=== PATIENT | female | born 1990 | race African-American/Black ===

== ENCOUNTER 2020-01-03 07:57 | Emergency (ER) | payer MEDICAID, SELFPAY ==
--- NOTE | 2020-01-03 08:04 | ED.GENADUL_ITS ---
Discharge Plan Discharge Details Primary Care Provider: None,None ED Provider: Lauren Lobo Mode of arrival: ambulatory . Date/Time Provider Initiated Documentation: 01/03/20 08:02 . Limitations to Documentation: no limitations . Information obtained by: patient .
--- NOTE | 2020-01-03 08:04 | W.ED.GENAD ---
Discharge Plan Discharge Details Primary Care Provider: None,None ED Provider: Lauren Lobo Mode of arrival: ambulatory. Date/Time Provider Initiated Documentation: 01/03/20 08:02. Limitations to Documentation: no limitations. Information obtained by: patient.
[2020-01-03 08:05] VITALS: BP 147/83; PULSE 82; TEMP 37.2; O2SAT 97
--- NOTE | 2020-01-03 08:15 | DI.US_ITS ---
EXAM: US PELVIS TRANSVAGINAL CLINICAL HISTORY: LLQ pain, h/o hemorrhagic cysts TECHNIQUE: Transabdominal and transvaginal imaging was performed using standard protocol. COMPARISON: No exams were available for comparison FINDINGS: KIDNEYS: Kidneys are symmetric in size. No evidence of renal calculi. No evidence of hydronephrosis. No renal mass or cyst identified. UTERUS: Anteverted. 10.9 x 5.7 x 6.2 cm Endometrium: 11 millimeters Myometrium: Unremarkable. Lower anterior uterine segment scar. Cervix: Unremarkable. OVARIES: Right: Cyst or mass: None. Left: Cyst or mass: 1.6 cm dominant follicle DOPPLER: Color: Symmetric and uniform flow to both ovaries. No hyperemia. Duplex: Normal ovarian arterial waveforms visualized. CUL-DE-SAC: Free fluid: None. IMPRESSION: 1. Unremarkable uterus with endometrial stripe within normal limits. 2. Unremarkable bilateral ovaries. DATA REPOSITORY:
[2020-01-03 08:18] LABS: Bilirubin Negative (Negative); Blood Moderate (Negative); Clarity Clear (Clear); Glucose 100 mg/dL (Negative); Ketones Negative (Negative); Leukocyte Esterase Small (Negative); Nitrite Negative (Negative); Specific Gravity >= 1.030 (1.005-1.025); Urobilinogen 0.2 EU/dL (Up TO 0.2); pH 5.5 (5-8)
--- NOTE | 2020-01-03 08:30 | DI.RAD_ITS ---
EXAM: XR FOOT RT COMPLETE CLINICAL HISTORY: ? FB plantar surface. TECHNIQUE: 2D digital imaging was performed. COMPARISON: No exams were available for comparison FINDINGS: BONES: No acute fracture is present. No bony destructive lesion is seen. JOINTS: No dislocation present. SOFT TISSUE: No radiopaque foreign body or abnormal gas collection. IMPRESSION: Unremarkable radiographs of the right foot. DATA REPOSITORY: RADIATION DOSE DELIVERED:
[2020-01-03 08:33] LABS: Bacteria Few HPF (Negative); C & S Indicated? No/Sq. Contamination; Casts Negative LPF (Negative); Crystals Negative HPF (Negative); Epithelial Cells Many HPF (Negative); Mucus Negative (Negative)
--- NOTE | 2020-01-03 08:36 | W.ED.GENAD ---
Discharge Plan Disposition Patient Disposition: HOME Condition: Stable Discharge Details Clinical Impression: Pelvic pain, infection, trichomonal, Elevated liver enzymes, Anemia Primary Care Provider: None,None ED Provider: Lauren Lobo Home Meds and New Rx's Prescriptions: New ibuprofen 600 mg tablet 600 mg PO Q8H PRNQty: 20 RF: 0 ferrous sulfate [iron] 325 mg (65 mg iron) tablet 325 mg PO DAILY Qty: 30 RF: 0 Discontinued ibuprofen 800 mg Tablet 800 mg PO Q8H RF: 0 No Action norethindrone (contraceptive) 0.35 mg tablet 0.35 mg PO DAILY Qty: 56 RF: 2 Discharge Instructions Instructions: Trichomoniasis (ED), Anemia (ED), Pelvic Pain (ED) Additional Instructions: Please return immediately to the emergency department if you develop any new or worsening symptoms, if your condition does not improve as expected, or if you become otherwise concerned. It is extremely important that you call soon as possible to make an appointment to be seen in follow-up for this visit by your primary care doctor, collating machine operator, and mental health as we discussed. Also, the number for a stitch bonding machine tender is provided here. Please call in the next 2 to 3 days if you are continuing to have foot pain. Stand Alone Forms: Work Release Referrals: Grayson Alcaraz DPM [[facility] STAFF PHYSICIAN] - Discharge Data Discharge Date/Time-TO BE ENTERED AT DEPARTURE: 01/03/20 13:50 Medical Decision Making Hung Barraza is a 29-year-old woman with history of hidradenitis presenting to the emergency department with irregular vaginal bleeding last night after her typical period ended 12/26, no current vaginal bleeding, also with left pelvic pain since onset of irregular bleeding last night. Patient also notes possible retained foreign body laceration right plantar foot. On exam patient is well and nontoxic-appearing, to bathroom and up and out of bed change with ease and without apparent discomfort. There is tenderness palpation across the pelvis, worse on the left, no mass, no rebound or guarding, no other abdominal tenderness palpation. Wound right plantar foot healing well without signs of infection, no obvious foreign body. Concern for possible retained foreign body to foot without active infection/abscess, left ovarian cyst versus other. Doubt torsion. U negative. Exam/history at this time is not consistent with appendicitis, diverticulitis, major intra-abdominal hemorrhage, sepsis, PID. Plan for screening labs, UA, pelvic ultrasound, foot x-ray. Will monitor and reassess. US negative for acute pathology process. Patient reporting no pelvic pain at this time. Exam/history at this time is not consistent with intermittent ovarian torsion. Patient reports history of bipolar, anxiety, and PTSD. With no current PCP, TOLL TEST DESK WORKER, or mental health practitioner, plan for care management to see patient to facilitate outpatient follow-up. Labs show slightly elevated liver enzymes, anemia 10.4. UA shows trichomonas. Patient reports that she has not been sexually active since 08/03, and has had no vaginal discharge, no itching. Patient has appointment with TOLL TEST DESK WORKER 01/05/2020. Exam/history at this time is not consistent with PID, will treat for trichomonas with one-time dose 2 g metronidazole, patient to follow-up with TOLL TEST DESK WORKER as scheduled, push to have pelvic exam for further STI testing performed at that visit. Patient also has appointment scheduled with PCP. Plan for outpatient follow-up for foot wound if she has continued pain in the next few days. Referral placed for outpatient follow-up with mental health, care management also involved with planning. Patient evaluated by mental [facility] for establishment of outpatient care in emergency department. Patient reports that she feels well and ready to go. Plan for Rx iron supplementation. Patient requests Rx for ibuprofen. I had a lengthy discussion with Patient regarding return to emergency department precautions, home care, and importance of outpatient follow-up. Pt verbalizes understanding of the plan and is amenable. Patient discharged to home with clear plan for outpatient follow-up. All questions were answered. Disposition decision was made weighing the risks and benefits of hospitalization versus outpatient treatment, the risk for further decompensation, and the patient's wishes. Medical Records Medical records reviewed: Yes I reviewed the patient's medical records. Imaging Data Radiologic Study: Attestation: I personally reviewed and interpreted this imaging study as follows: Radiologist's impression: EXAM: XR FOOT RT COMPLETE CLINICAL HISTORY: ? FB plantar surface. TECHNIQUE: 2D digital imaging was performed. COMPARISON: No exams were available for comparison FINDINGS: BONES: No acute fracture is present. No bony destructive lesion is seen. JOINTS: No dislocation present. SOFT TISSUE: No radiopaque foreign body or abnormal gas collection. IMPRESSION: Unremarkable radiographs of the right foot. EXAM: US PELVIS TRANSVAGINAL CLINICAL HISTORY: LLQ pain, h/o hemorrhagic cysts TECHNIQUE: Transabdominal and transvaginal imaging was performed using standard protocol. COMPARISON: No exams were available for comparison FINDINGS: KIDNEYS: Kidneys are symmetric in size. No evidence of renal calculi. No evidence of hydronephrosis. No renal mass or cyst identified. UTERUS: Anteverted. 10.9 x 5.7 x 6.2 cm Endometrium: 11 millimeters Myometrium: Unremarkable. Lower anterior uterine segment scar. Cervix: Unremarkable. OVARIES: Right: Cyst or mass: None. Left: Cyst or mass: 1.6 cm dominant follicle DOPPLER: Color: Symmetric and uniform flow to both ovaries. No hyperemia. Duplex: Normal ovarian arterial waveforms visualized. CUL-DE-SAC: Free fluid: None. IMPRESSION: 1. Unremarkable uterus with endometrial stripe within normal limits. 2. Unremarkable bilateral ovaries. Lab Data Lab results reviewed: Yes I reviewed the patient's lab results. Labs: Laboratory Tests Range/Units 01/03/20 01/03/20 01/03/20 08:05 08:50 08:50 WBC (4.4-10.8) 10^3/uL 5.25 RBC (3.93-5.22) 10^6/uL 4.67 Hgb (11.2-15.7) g/dL 10.4 L Hct (36.0-46.0) % 35.4 L MCV (80-95) fL 75.8 L MCH (27.0-33.0) pg 22.3 L MCHC (32.0-36.0) % 29.4 L RDW (11.7-14.6) % 17.6 H Plt Count (130-400) 10^3/uL 559 H MPV (8.0-11.0) fL 9.2 Immature Gran % 0.2 Neutrophils % 49.1 Lymphocytes % 41.3 Monocytes % 7.6 Eosinophils % 1.0 Basophils % 0.8 Nucleated RBC % % 0 Absolute Neutrophils (1.2-6.7) 10^3/uL 2.58 Absolute Lymphocytes (1.2-3.4) 10^3/uL 2.17 Absolute Monocytes (0.1-0.8) 10^3/uL 0.40 Absolute Eosinophils (0.0-0.7) 10^3/uL 0.05 Absolute Basophils (0.0-0.2) 10^3/uL 0.04 PT (9.3-11.0) sec INR (0.9-1.1) Sodium (136-145) mmol/L 137 Potassium (3.5-5.1) mmol/L 4.1 Chloride (98-107) mmol/L 102 Carbon Dioxide (21.0-32.0) mmol/L 25.2 Anion Gap (3-11) mmol/L 9.8 BUN (7-18) mg/dL 9 Creatinine (0.55-1.02) mg/dL 0.55 Estimated GFR/1.73 m2 (mL/min/1.73m2) >= 60.00 Glucose (74-106) mg/dL 180 H Calcium (8.5-10.1) mg/dL 9.2 Total Bilirubin (0.2-1.0) mg/dL 0.2 AST (15-37) U/L 46 H ALT (14-59) U/L 85 H Alkaline Phosphatase (46-116) U/L 104 Total Protein (6.4-8.2) g/dL 8.3 H Albumin (3.4-5.0) g/dL 3.7 Beta HCG, Quant (1-3) mIU/mL 2 Urine Color (Yellow) Yellow Urine Clarity (Clear) Clear Urine pH (5-8) 5.5 Ur Specific [place] (1.005-1.025) >= 1.030 H Urine Protein (Negative) mg/dL 30 H Urine Ketones (Negative) mg/dL Negative Urine Blood (Negative) Moderate H Urine Nitrite (Negative) Negative Urine Bilirubin (Negative) Negative Urine Urobilinogen (Up TO 0.2) EU/dL 0.2 Ur Leukocyte Esterase (Negative) Small H Urine RBC (0-2) HPF 10-20 H Urine WBC (0-5) HPF 5-10 Ur Epithelial Cells (Negative) HPF Many Urine Crystals (Negative) HPF Negative Urine Bacteria (Negative) HPF Few Urine Casts (Negative) LPF Negative Urine Mucus (Negative) Negative Urine Other (Negative) Many trichomonas Ur Culture Indicated? No/sq. contamination Urine Glucose (Negative) mg/dL 100 Range/Units 01/03/20 08:50 WBC (4.4-10.8) 10^3/uL RBC (3.93-5.22) 10^6/uL Hgb (11.2-15.7) g/dL Hct (36.0-46.0) % MCV (80-95) fL MCH (27.0-33.0) pg MCHC (32.0-36.0) % RDW (11.7-14.6) % Plt Count (130-400) 10^3/uL MPV (8.0-11.0) fL Immature Gran % Neutrophils % Lymphocytes % Monocytes % Eosinophils % Basophils % Nucleated RBC % % Absolute Neutrophils (1.2-6.7) 10^3/uL Absolute Lymphocytes (1.2-3.4) 10^3/uL Absolute Monocytes (0.1-0.8) 10^3/uL Absolute Eosinophils (0.0-0.7) 10^3/uL Absolute Basophils (0.0-0.2) 10^3/uL PT (9.3-11.0) sec 9.8 INR (0.9-1.1) 1.0 Sodium (136-145) mmol/L Potassium (3.5-5.1) mmol/L Chloride (98-107) mmol/L Carbon Dioxide (21.0-32.0) mmol/L Anion Gap (3-11) mmol/L BUN (7-18) mg/dL Creatinine (0.55-1.02) mg/dL Estimated GFR/1.73 m2 (mL/min/1.73m2) Glucose (74-106) mg/dL Calcium (8.5-10.1) mg/dL Total Bilirubin (0.2-1.0) mg/dL AST (15-37) U/L ALT (14-59) U/L Alkaline Phosphatase (46-116) U/L Total Protein (6.4-8.2) g/dL Albumin (3.4-5.0) g/dL Beta HCG, Quant (1-3) mIU/mL Urine Color (Yellow) Urine Clarity (Clear) Urine pH (5-8) Ur Specific [place] (1.005-1.025) Urine Protein (Negative) mg/dL Urine Ketones (Negative) mg/dL Urine Blood (Negative) Urine Nitrite (Negative) Urine Bilirubin (Negative) Urine Urobilinogen (Up TO 0.2) EU/dL Ur Leukocyte Esterase (Negative) Urine RBC (0-2) HPF Urine WBC (0-5) HPF Ur Epithelial Cells (Negative) HPF Urine Crystals (Negative) HPF Urine Bacteria (Negative) HPF Urine Casts (Negative) LPF Urine Mucus (Negative) Urine Other (Negative) Ur Culture Indicated? Urine Glucose (Negative) mg/dL HPI General Mode of arrival: ambulatory. Date/Time Provider Initiated Documentation: 01/03/20 08:02. Limitations to Documentation: no limitations. Information obtained by: patient. HPI Narrative: Hung Barraza is a 29-year-old woman with history of hidradenitis, the menstrual bleeding presenting to the emergency department with irregular vaginal bleeding and left lower quadrant pain. Patient reports that she has a long history of heavy periods and pelvic pain. Patient reports that endometriosis runs in her family, both her mother and sister have been diagnosed with this. Patient reports that she has an appointment with a collating machine operator 01/12 for further evaluation of possible endometriosis. Patient reports that her last period was typical for her and ended 12/26. Patient reports that last night she had sudden onset pain in her pelvic area, worse on the left, felt a heaviness in her pelvis and went to the bathroom. Patient reports that she had a significant amount of vaginal bleeding and clots, which then seemed to stop completely. Patient has had no further vaginal bleeding since this episode last night. She reports continued pain in her left lower quadrant that radiates into her left leg. Patient reports that she has had this type of pain for years, same in location/quality/severity, approximately half of the days in a month, but severity of the pain has been worse than usual since last night, though improved this morning. Patient has attributed this pain to possible endometriosis in the past. Patient reports that she was diagnosed with a ruptured ovarian cyst in the past, which felt somewhat similar to this episode. Patient has 2 children, also with 1 miscarriage last year. Was previously in her usual state of health. No other recent symptoms. She denies any other pain. Patient notes that 3 days ago she stepped on what she believes was glass, and is concerned that she may have some of the retained material in the cut on her right foot. Patient reports that she cleaned the cut well. She reports mild pain at the site, denies discharge/redness/swelling. Patient reports her tetanus is up-to-date. Patient states that she moved to [place] from out of state in May, and then moved to [place] in October. Related Data Home Medications Medication Instructions Recorded Confirmed ferrous sulfate [iron] 325 mg PO DAILY #30 tab 01/03/20 01/05/20 ibuprofen 600 mg PO Q8H PRN #20 tab 01/03/20 01/05/20 norethindrone (contraceptive) 0.35 0.35 mg PO DAILY #56 tab 01/05/20 01/05/20 mg tablet Previous Rx's Medication Instructions Recorded ferrous sulfate [iron] 325 mg PO DAILY #30 tab 01/03/20 ibuprofen 600 mg PO Q8H PRN #20 tab 01/03/20 norethindrone (contraceptive) 0.35 0.35 mg PO DAILY #56 tab 01/05/20 mg tablet Allergies Allergy/AdvReac Type Severity Reaction Status Date / Time grape Allergy Unverified 01/05/20 13:06 General Stated Complaint: TOLL TEST DESK WORKER ILDA: 3 Review of Systems Narrative: Constitutional: denies fevers Eyes: denies eye pain ENT: denies ear pain, dental pain, sore throat Cardiovascular: denies chest pain, edema Respiratory: denies SOB, cough GI: denies vomiting, diarrhea, reports left lower quadrant/left pelvic pain : denies flank pain, dysuria, vaginal discharge, reports irregular vaginal bleeding MSK: denies back pain, neck pain, arthralgias, myalgias Skin: denies rash, reports cut with possible foreign body to plantar surface of right foot as per HPI Neuro: denies headaches, numbness, weakness PFSH Medical History (Updated 01/09/20 @ 18:49 by Robyn Patten MD) Anxiety In past has used Klonipin, and Xanax. Bipolar 1 disorder Elevated blood pressure reading 01/04/20. 140/93. Endometriosis Pt never had laparoscopy. Was told her pelvic pain sx were most likely endometriosis. Obesity 01/04/20 BMI 45. Pelvic pain Surgical History (Updated 01/09/20 @ 18:21 by Robyn Patten MD) H/O breast augmentation Hx of section Hx of dilation and curettage 2018. SAB twins Hx of tonsillectomy Family History (Updated 01/09/20 @ 18:10 by Robyn Patten MD) Other Blood clotting disorder Breast cancer Diabetes Heart disease Hyperlipidemia Stroke Social History (Updated 01/09/20 @ 18:18 by Robyn Patten MD) Smoking/Tobacco Use Status: Never Alcohol Intake: never Drug use: Daily Substance use type: marijuana Household members: other Details: Marilu-Joan Grady Housing: other Details: moved from [facility]. Lives with friend who is travelling nurse in [place] Number of Children: 2 Education Level: high school current occupation: [employer]. Part-time Do you think of yourself as: straight/heterosexual Do you feel safe at home: Yes Do you feel safe in your relationship?: Yes History History 3 Para 2 Hx # Term Pregnancies 2 Multiple births Hx # Pregnancies Ectopic pregnancies AB induced Hx Number of Living Children 2 AB spontaneous 1 Exam Narrative Exam Narrative: Constitutional: well and [id number], pleasant, conversing normally HENT: head atraumatic/normocephalic/normal inspection, mucous membranes moist Eyes: conjunctiva normal, sclera normal, pupils 3mm b/l Resp: normal work of breathing Cardio: normal rate, normal rhythm GI: abdomen soft, mild tenderness to palpation across pelvis, worse in the left pelvic area, non-distended, negative Villalobos's, no McBurney's point tenderness palpation, no rebound, no guarding Skin: warm, dry, normal color, no rash Neuro: alert, not altered, grossly non-focal, normal tone Ext: no edema. 1 cm healing wound right plantar foot, no edema, no erythema, no discharge, no dehiscence. Mildly tender to palpation, no obvious foreign body palpated. Psych: normal mood, normal affect, normal behavior Course Vital Signs Vital signs: Vital Signs Temperature 37.2 C 01/03/20 08:05 Pulse 82 01/03/20 08:05 Blood Pressure 147/83 H 01/03/20 08:05 Pulse Oximetry 97 01/03/20 08:05 Temperature 37.2 C 01/03/20 08:05 Temperature Source Temporal Artery Scan 01/03/20 08:05 Pulse 82 01/03/20 08:05 Respiratory Effort Non-Labored 01/03/20 08:11 Blood Pressure 147/83 H 01/03/20 08:05 Blood Pressure Position Sitting 01/03/20 08:05 Pulse Oximetry 97 01/03/20 08:05 Oxygen Delivery Method Room Air 01/03/20 08:05 Oxygen Flow Rate 0 01/03/20 08:05 Pain Level 6 01/03/20 08:12 Lab/Test Results Lab/Test Results: Laboratory Tests Range/Units 01/03/20 08:05 Urine Color (Yellow) Yellow Urine Clarity (Clear) Clear Urine pH (5-8) 5.5 Ur Specific [place] (1.005-1.025) >= 1.030 H Urine Protein (Negative) mg/dL 30 H Urine Ketones (Negative) mg/dL Negative Urine Blood (Negative) Moderate H Urine Nitrite (Negative) Negative Urine Bilirubin (Negative) Negative Urine Urobilinogen (Up TO 0.2) EU/dL 0.2 Ur Leukocyte Esterase (Negative) Small H Urine RBC (0-2) HPF 10-20 H Urine WBC (0-5) HPF 5-10 Ur Epithelial Cells (Negative) HPF Many Urine Crystals (Negative) HPF Negative Urine Bacteria (Negative) HPF Few Urine Casts (Negative) LPF Negative Urine Mucus (Negative) Negative Urine Other (Negative) Many trichomonas Ur Culture Indicated? No/sq. contamination Urine Glucose (Negative) mg/dL 100 POC- Test(urine) Negative
[2020-01-03] MEDS: Ibuprofen 600 MG TAB PO (08:42)
[2020-01-03 09:01] LABS: Abs Immature Grans 0.01 10^3/uL (0.0-0.06); Absolute Basophil Count 0.04 10^3/uL (0.0-0.2); Absolute Eosinophil Count 0.05 10^3/uL (0.0-0.7); Absolute Lymphocyte Count 2.17 10^3/uL (1.2-3.4); Absolute Neutrophil Count 2.58 10^3/uL (1.2-6.7); Basophils % 0.8; HCT 35.4 % (36.0-46.0); HGB 10.4 g/dL (11.2-15.7); Immature Grans % 0.2; Lymphocytes % 41.3; MCH 22.3 pg (27.0-33.0); MCHC 29.4 % (32.0-36.0); MCV 75.8 fL (80-95); MPV 9.2 fL (8.0-11.0); Monocytes % 7.6; Neutrophils % 49.1; Nucleated RBC 0 %; Platelet Count 559 10^3/uL (130-400); RBC 4.67 10^6/uL (3.93-5.22); RDW 17.6 % (11.7-14.6); RDW-SD 47.6 fL; WBC 5.25 10^3/uL (4.4-10.8)
[2020-01-03 09:11] LABS: Prothrombin Time 9.8 sec (9.3-11.0)
[2020-01-03 09:24] LABS: ALT 85 U/L (14-59); AST 46 U/L (15-37); Albumin 3.7 g/dL (3.4-5.0); Alkaline Phosphatase 104 U/L (46-116); Anion Gap 9.8 mmol/L (3-11); BUN 9 mg/dL (7-18); Bilirubin, Total 0.2 mg/dL (0.2-1.0); CO2 25.2 mmol/L (21.0-32.0); CREATININE 0.55 mg/dL (0.55-1.02); Calcium 9.2 mg/dL (8.5-10.1); Chloride 102 mmol/L (98-107); Glucose 180 mg/dL (74-106); HCG Quant, Pregnancy 2 mIU/mL (1-3); Potassium 4.1 mmol/L (3.5-5.1); Sodium 137 mmol/L (136-145); Total Protein 8.3 g/dL (6.4-8.2)
[2020-01-03 09:49] VITALS: BP 140/66; PULSE 65; RESP 18; TEMP 37; O2SAT 100
[2020-01-03 11:20] VITALS: BP 146/83; PULSE 72; TEMP 36.2; O2SAT 100
[2020-01-03] MEDS: metroNIDAZOLE 500 MG TAB 2000 MG PO (13:41)
[2020-01-03 13:51] VITALS: BP 142/80; PULSE 75; RESP 20; TEMP 36.9; O2SAT 100
--- NOTE | 2020-01-03 15:34 | CMPROGNOTE_ITS ---
- If Service Date Differs Date of service: 01/03/20 Time of Service: 15:34 Care Management Progress Note S/O: CM met with Angel in the ED at the request of . Hung is alert and engaged with CM assessment. She is new to the area and is in need of primary care, obgyn, as well as mental health services. Hung has two children 10 and 7 she lives with her friend in [place]. She is receptive to care and wants to be connected with services. She has transportation and is rec eptive to CM setting up her appointments. She states she has not had access to her medications for her Bipolar since November. She has irregular menstruation, and per report endometriosis.CM contacted [facility], [facility], and [facility]. CM facilitated mental health visit in the ED for intake paperwork. Mario (crisis) [facility] met with her and will contact her tonight over the phone for check in. CM made the following appointments and new referrals. [facility] 01/05/20 at 1240 Maegan Sanchez NP [facility] 01/28/20 at [address] [facility] - Face to face visit and coordination of visit and intake paperwork. P: Hung will be discharged from the ED she will contact this CM with questions or concerns. CM provided all the appointment dates and times and obtained consents for medical record release.
== END 2020-01-03 13:50 | disposition home or self-care (01) ==
PROVIDERS: Emergency Provider Student in an Organized Health Care Education/Training Program
DX: A59.00 Urogenital trichomoniasis, unspecified (principal); R10.2 Pelvic and perineal pain; N93.8 Other specified abnormal uterine and vaginal bleeding; R74.8 Abnormal levels of other serum enzymes; S91.311A Laceration without foreign body, right foot, initial encounter; W25.XXXA Contact with sharp glass, initial encounter; D64.9 Anemia, unspecified
CPT/HCPCS: 36415; 80053; 81025; 99284; 73630; 76830; 76856; 81003; 81015; 84702; 85025; 85610

== ENCOUNTER 2020-01-05 16:14 | Outpatient (REF) | payer MEDICAID, SELFPAY ==
[2020-01-07 15:40] LABS: Chlamydia Result Negative (Negative); GC Result Negative (Negative)
== END 2020-01-05 16:34 ==
LOC: LBN 16:14
PROVIDERS: Visit Provider Obstetrics & Gynecology Gynecology
DX: R10.2 Pelvic and perineal pain (principal); Z11.3 Encounter for screening for infections with a predominantly sexual mode of transmission
CPT/HCPCS: 87491; 87591

== ENCOUNTER 2020-01-31 23:19 | Emergency (ER) | payer MEDICAID, SELFPAY ==
--- NOTE | 2020-01-31 23:15 | DI.RAD_ITS ---
EXAM: XR SHOULDER RT COMPLETE 2+V CLINICAL HISTORY: pain. TECHNIQUE: 2D digital imaging was performed. COMPARISON: No exams were available for comparison FINDINGS: The examination is limited due to patient motion artifact. BONES: No acute fracture is present. No bony destructive lesion is seen. JOINTS: No dislocation present. SOFT TISSUE: Normal. IMPRESSION: Unremarkable radiographs of the right shoulder. DATA REPOSITORY: RADIATION DOSE DELIVERED:
[2020-01-31 23:24] VITALS: BP 152/77; PULSE 98; RESP 16; TEMP 36.7; O2SAT 96
[2020-01-31] MEDS: Acetaminophen 500 MG TAB 1000 MG PO (23:30)
--- NOTE | 2020-01-31 23:31 | ED.GENADUL_ITS ---
Discharge Plan Disposition Patient Disposition: HOME Condition: Stable Discharge Details Clinical Impression: Pain in right shoulder Primary Care Provider: Daniel Moyer ED Provider: Kam Casillas Home Meds and New Rx's Prescriptions: Continued norethindrone (contraceptive) 0.35 mg tablet 0.35 mg PO DAILY Qty: 56 RF: 2 hydrocodone-acetaminophen 5-325 mg tablet 1 tab PO Q6H MDD 4 PRN (Reason: pain) Qty: 30 RF: 0 ibuprofen 600 mg tablet 600 mg PO Q6H PRN (Reason: pain) Qty: 60 RF: 1 ferrous sulfate [iron] 325 mg (65 mg iron) tablet 325 mg PO DAILY Qty: 30 RF: 0 Discharge Instructions Instructions: Shoulder Pain (ED) Additional Instructions: if pain continues in a week follow up with your primary care provider return to the emergency department for worsening pain, fevers or if you feel more ill Medical Decision Making 29 yo female comes in with right shoulder pain. She states she was doing laundry lifting a bag when she developed pain in her right shoulder. Denies falls or other trauma. She localizes the pain to the right posterior shoulder and has no visible or palpable deformity. Normal distal sensation and has full rom no warmth or erythema and denies fevers. Could be rotator cuff injury, sprain vs strain or bursitis. No findings to suggest septic joint. Given full rom and lack of trauma doubt dislocation, will obtain xray to evaluate for any bone abnormalities such as fx though this seems unlikely xray negative for acute findings and she feels better after tylenol still with full rom. Suspect strain or bursitis, will d/c and advised f/u with pcp and return precautions given Differential Diagnosis Differential Diagnosis: spasm, strain, sprain, rotator cuff injury HPI General Mode of arrival: ambulatory . Date/Time Provider Initiated Documentation: 01/31/20 23:20 . Limitations to Documentation: no limitations . Information obtained by: patient . History of Present Illness 29 year old F presents to the emergency department with the chief complaint of right shoulder pain, described as moderate, and it has been constant. No relieving factors improve symptom(s), No exacerbating factors reported . Patient did receive the following treatments prior to arrival, none Related Data Home Medications Medication Instructions Recorded Confirmed ferrous sulfate [iron] 325 mg PO DAILY #30 tab 01/03/20 01/24/20 norethindrone (contraceptive) 0.35 0.35 mg PO DAILY #56 tab 01/05/20 01/24/20 mg tablet hydrocodone 5 mg-acetaminophen 325 1 tab PO Q6H PRN #30 tab MDD 4 01/24/20 01/24/20 mg tablet ibuprofen 600 mg tablet 600 mg PO Q6H PRN #60 tab 01/24/20 01/24/20 Previous Rx's Medication Instructions Recorded ferrous sulfate [iron] 325 mg PO DAILY #30 tab 01/03/20 norethindrone (contraceptive) 0.35 0.35 mg PO DAILY #56 tab 01/05/20 mg tablet hydrocodone 5 mg-acetaminophen 325 1 tab PO Q6H PRN #30 tab MDD 4 01/24/20 mg tablet ibuprofen 600 mg tablet 600 mg PO Q6H PRN #60 tab 01/24/20 Allergies Allergy/AdvReac Type Severity Reaction Status Date / Time grape Allergy Unverified 01/24/20 13:57 General Stated Complaint: Orthopedic ILDA: 3 Review of Systems All systems reviewed & are unremarkable except as noted in HPI and below Constitutional Constitutional: Denies chills, Denies fever(s) and Denies weakness Cardiovascular Cardiovascular: Denies chest pain and Denies dyspnea Respiratory Respiratory: Denies cough and Denies dyspnea Gastrointestinal Gastrointestinal: Denies abdominal pain, Denies nausea and Denies vomiting Musculoskeletal Musculoskeletal: Denies joint swelling Neurologic Neurologic: Denies weakness [facility] Medical History (Updated 02/01/20 @ 00:07 by Kam Casillas MD) Anxiety In past has used Klonipin, and Xanax. Bipolar 1 disorder Dysmenorrhea Elevated blood pressure reading 01/04/20. 140/93. Endometriosis Pt never had laparoscopy. Was told her pelvic pain sx were most likely endometriosis. Obesity 01/04/20 BMI 45. Pelvic pain Surgical History (Updated 01/09/20 @ 18:21 by Robyn Patten MD) H/O breast augmentation Hx of section Hx of dilation and curettage 2018. SAB twins Hx of tonsillectomy Family History (Updated 01/09/20 @ 18:10 by Robyn Patten MD) Other Blood clotting disorder Breast cancer Diabetes Heart disease Hyperlipidemia Stroke Social History (Updated 01/09/20 @ 18:18 by Robyn Patten MD) Smoking/Tobacco Use Status: Never Smoking risk assessment performed?: Yes Alcohol Intake: never Drug use: Daily Substance use type: marijuana Household members: other Details: D-Miguel A, S-Chuck Housing: other Details: moved from [facility]. Lives with friend who is travelling nurse in [place] Number of Children: 2 Education Level: high school current occupation: [email or web address] Part-time Do you think of yourself as: straight/heterosexual Do you feel safe at home: Yes Do you feel safe in your relationship?: Yes Female Reproductive History Menstrual Age of Menarche: 10 Duration of menses: 8-10 days (monthly, heavy) control method: other (abstinent) History History 3 Para 2 Hx # Term Pregnancies 2 Multiple births Hx # Pregnancies Ectopic pregnancies AB induced Hx Number of Living Children 2 AB spontaneous 1 Exam Const General: no acute distress Orientation: alert HENMT Head: normal to inspection Ears: external ears normal General nose exam: external nose normal Mouth: moist mucous membranes Eyes General: appearance normal, both eyes and all related structures Neck Neck: normal visual inspection Resp Effort & Inspection: normal respiratory effort and able to speak in complete sentences Cardio Rate: regular rate Skin General skin exam: no rashes or lesions noted Neuro General: patient alert and patient oriented x3 Extrem General: normal to inspection Psych Mental Status: mental status grossly normal Course Vital Signs Vital signs: Vital Signs Temperature 36.7 C 01/31/20 23:24 Pulse 98 H 01/31/20 23:24 Respiratory Rate 16 01/31/20 23:24 Blood Pressure 152/77 H 01/31/20 23:24 Pulse Oximetry 96 01/31/20 23:24 Temperature 36.7 C 01/31/20 23:24 Temperature Source Skin 01/31/20 23:24 Pulse 98 H 01/31/20 23:24 Respiratory Rate 16 01/31/20 23:24 Respiratory Effort Non-Labored 01/31/20 23:29 Blood Pressure 152/77 H 01/31/20 23:24 Blood Pressure Position Sitting 01/31/20 23:24 Pulse Oximetry 96 01/31/20 23:24 Oxygen Delivery Method Room Air 01/31/20 23:24 Oxygen Flow Rate 0 01/31/20 23:24 Pain Level 10 01/31/20 23:29
--- NOTE | 2020-01-31 23:53 | DI.VRAD_ITS ---
PROCEDURE INFORMATION: Exam: XR Right Shoulder Exam date and time: 01/31/2020 11:46 PM Age: 29 years old Clinical indication: Pain; Shoulder; Right; Patient HX: Pin, unknown injury, no trauma TECHNIQUE: Imaging protocol: XR Right shoulder. Views: 2 or more views. COMPARISON: No relevant prior studies available. FINDINGS: Bones/joints: Normal. Soft tissues: Normal. IMPRESSION: No acute findings. Dictated and Authenticated by: Dav Ellis MD. Ordering:BRYCE Humphrey MD
== END 2020-02-01 00:30 | disposition home or self-care (01) ==
PROVIDERS: Emergency Provider Emergency Medicine; PCP Nurse Practitioner Family
DX: M25.511 Pain in right shoulder (principal)
CPT/HCPCS: 99283; 73030; L3650

== ENCOUNTER 2020-02-24 20:56 | Outpatient (REF) | payer MEDICAID, SELFPAY ==
[2020-02-25 14:06] LABS: Chlamydia Result Negative (Negative); GC Result Negative (Negative)
== END 2020-02-24 21:16 ==
LOC: LBN 20:56
PROVIDERS: PCP Nurse Practitioner Family; Visit Provider Obstetrics & Gynecology
DX: Z11.3 Encounter for screening for infections with a predominantly sexual mode of transmission (principal)
CPT/HCPCS: 87491; 87591